=== PATIENT | male | born 1945 | race Caucasian/White ===

== ENCOUNTER 2025-06-19 12:17 | Emergency (ER) | payer OTHER, SELFPAY ==
[2025-06-19 12:24] VITALS: BP 129/60
[2025-06-19 12:54] LABS: Hematocrit 39.8 % (39.0-52.0); Hemoglobin 13.5 g/dL (13.0-18.0); Mean Corp Hgb Conc. 33.9 g/dL (33.0-37.0); Mean Corpuscular Volume 93.9 fL (80.0-94.0); Nucleated Red Blood Cells % 0 % (-); Platelet Count 190 10^3/uL (130-400); Red Cell Dist. Width 13.3 % (11.5-14.5)
[2025-06-19 13:09] LABS: ALT (SGPT) 26 U/L (0-50); AST (SGOT) 29 U/L (17-59); Albumin 4.5 g/dl (3.5-5.0); Alkaline Phosphatase 74 U/L (38-126); Blood Urea Nitrogen 18 mg/dl (9-20); Calcium 9.2 mg/dl (8.4-10.2); Carbon Dioxide 27 mmol/L (22-30); Chloride 104 mmol/L (98-107); Glucose 96 mg/dl (70-99); Potassium 4.1 mmol/L (3.5-5.1); Sodium 136 mmol/L (135-145); Total Protein 7.3 g/dl (6.3-8.2); eGFR > 60.00
[2025-06-19 15:57] VITALS: BP 135/60
[2025-06-19 16:00] VITALS: BP 116/61
[2025-06-19 16:07] VITALS: BMI 23.8
[2025-06-19 17:00] VITALS: BP 111/60
--- NOTE | 2025-06-19 17:11 | ED.GENMED ---
History of Present Illness
<PAM Santos - Last Filed: 06/19/25 20:22>
General
Chief Complaint: Breathing Problem
Exam Limitations: none
Time Seen by Provider: 06/19/25 16:00
Nursing documentation reviewed up to this point in time: agreed with
History of Present Illness
History of Present Illness:
Patient is 80-year-old male with history of COPD hyperlipidemia presents to the ER for evaluation. Patient started with cough and shortness of breath last night. He went to urgent care today had an x-ray and was sent to the ER. He denies any
associated fevers. He wears oxygen as needed. believes his normal pulse ox is between 92-95% on room air. Patient does have oxygen however prescribed by gear repair supervisor to use as needed . He is followed by pulmonology outside of this
institution.
Patient has had flareups like this in the past and reports wheezes quite often.
Patient last smoked a month ago. He reports he smokes maybe 1 cigarette/month.
No prior history of PE. Patient denies any chest pain denies any lower extremity swelling.
Phy Exam
<PAM Santos - Last Filed: 06/19/25 20:22>
General Physical Exam
General Presentation: no apparent distress
General age: appears stated age
General Skin: warm and dry
General Habitus: normal
General Mental: alert
General Hydration: appears well hydrated
Cardiovascular Exam
Cardiovascular Exam: regular rate/rhythm
Pulmonary Exam
Pulmonary Exam: no respiratory distress and generalized wheezing
Neurological Exam
Neurological Exam: alert and oriented x3
Musculoskeletal Exam
Musculoskeletal Exam: full ROM
Skin Exam
Skin Exam: normal color and warm/dry
Psychiatric Exam
Psychiatric Exam: normal mood/affect
Scores
<PAM Santos - Last Filed: 06/19/25 20:22>
Heart Failure Risk
Heart Failure Risk Score: Not Applicable
Course
<PAM Santos - Last Filed: 06/19/25 20:22>
Orders/Labs/Results
Orders:
Orders
06/19/25 12:42
Complete Blood Count/With Diff Urgent
Comprehensive Metabolic Panel Urgent
06/19/25 17:20
Albuterol Sulfate [Ventolin Nebules] 7.5 mg INH R NOW STA
Ipratropium Nebs [Atrovent Nebules] 1 mg INH R NOW STA
06/19/25 17:21
Dexamethasone Sod Phosphate [Decadron] 10 mg IV NOW STA
06/19/25 17:41
COVID-19 Antigen Urgent
Source: Nasal Swab
Influenza A+B Rapid Molecular Urgent
NURYS Source: Nasal Swab
Specimen Description:
Abnormal Lab Results
06/19/25
12:42
RBC 4.24 L 10^6/uL
(4.70-6.10)
MCH 31.8 H pg
(27.0-31.0)
Absolute Neuts (auto) 7.9 H 10^3/uL
(1.4-6.5)
Absolute Monos (auto) 0.9 H 10^3/uL
(0.1-0.6)
Neutrophils % 78.2 H %
(42.2-75.2)
Lymphocytes % 11.5 L %
(20.5-51.1)
06/19/25 12:42
06/19/25 12:42
Vital Signs
Initial and Last Documented VS:
Initial Vital Signs
Temp Pulse Resp BP Pulse Ox
98.8 F 98 28 129/60 93
06/19/25 12:24 06/19/25 12:24 06/19/25 12:24 06/19/25 12:24 06/19/25 12:24
Last Documented Vital Signs
Temp Pulse Resp BP Pulse Ox
98.8 F 108 20 116/61 96
06/19/25 12:24 06/19/25 16:00 06/19/25 16:00 06/19/25 16:00 06/19/25 17:15
Electronics Engineering Professor consulted with Physician
Electronics Engineering Professor consulted with physician?: Yes
Name of Physician Consulted: rickie
<Betzaida Fontana MD - Last Filed: 06/19/25 20:22>
Orders/Labs/Results
Orders:
Orders
06/19/25 12:42
Complete Blood Count/With Diff Urgent
Comprehensive Metabolic Panel Urgent
06/19/25 17:20
Albuterol Sulfate [Ventolin Nebules] 7.5 mg INH R NOW STA
Ipratropium Nebs [Atrovent Nebules] 1 mg INH R NOW STA
06/19/25 17:21
Dexamethasone Sod Phosphate [Decadron] 10 mg IV NOW STA
06/19/25 17:41
COVID-19 Antigen Urgent
Source: Nasal Swab
Influenza A+B Rapid Molecular Urgent
NURYS Source: Nasal Swab
Specimen Description:
Abnormal Lab Results
06/19/25
12:42
RBC 4.24 L 10^6/uL
(4.70-6.10)
MCH 31.8 H pg
(27.0-31.0)
Absolute Neuts (auto) 7.9 H 10^3/uL
(1.4-6.5)
Absolute Monos (auto) 0.9 H 10^3/uL
(0.1-0.6)
Neutrophils % 78.2 H %
(42.2-75.2)
Lymphocytes % 11.5 L %
(20.5-51.1)
06/19/25 12:42
06/19/25 12:42
Vital Signs
Initial and Last Documented VS:
Initial Vital Signs
Temp Pulse Resp BP Pulse Ox
98.8 F 98 28 129/60 93
06/19/25 12:24 06/19/25 12:24 06/19/25 12:24 06/19/25 12:24 06/19/25 12:24
Last Documented Vital Signs
Temp Pulse Resp BP Pulse Ox
98.8 F 108 20 116/61 96
06/19/25 12:24 06/19/25 16:00 06/19/25 16:00 06/19/25 16:00 06/19/25 17:15
<PAM Santos - Last Filed: 06/19/25 20:22>
MDM/Problems Addressed
Differential Diagnosis Includes:
Not limited to pneumonia, COVID, influenza, COPD exacerbation
MDM/Problems Addressed:
Patient is an 80-year-old male with history of COPD has oxygen as needed followed by pulmonology outside of this institution. Patient presents with cough and shortness of breath since yesterday. He denies any fevers he presents awake alert no
acute distress. He does have wheezing however throughout. No prior history of PE DVT no lower extremity swelling. Mildly tachycardic likely from nebs symptoms not consistent with PE likely COPD exacerbation.
Patient was given an hour-long neb and steroids feeling much better.
He ambulated here in the ED, sats did go as low as 88% however this was on room air. Pt wants to go home reports he is feeling much better and has oxygen at home as well as an albuterol nebulizer machine with albuterol nebs.
His CT outpatient urgent care x-ray was scanned into the system and reviewed by radiology. No acute findings. There is a nodular density possible calcified granuloma in the right lower lobe will recommend a nonemergent CAT scan.
Chronic conditions affecting care:
COPD smoker
<PAM Santos - Last Filed: 06/19/25 20:22>
*Radiology
Radiology exam reviewed: preliminary read by ED provider (Urgent care x-ray read by radiologist negative for acute findings there is a nodular opacity in the right lower lobe possible calcified granuloma with needed nonemergent CT) and radiology
read reviewed
*Pulse Oximetry
SaO2: 96
Nasal Cannula flow liters per minute: 3
Oxygen Mode of Delivery: Room air
Patient hypoxic: no
*Critical Care Note
Total Time (30-74mins, 75-104mins- exclusive of procedures): Not Applicable
ED Attending Note
<PAM Santos - Last Filed: 06/19/25 20:22>
-
Portions of this chart may have been created with voice recognition software.� Occasional wrong word or��sound alike� substitutions may have occurred due to the inherent limitations of voice recognition software.
<Betzaida Fontana MD - Last Filed: 06/19/25 20:22>
ED Attending Note
Patient seen and examined by attending physician: Yes
I performed the substantive portion of visit, reviewed & personally made and approve the management plan that is documented in note by myself or AUNDREA.: Yes
ED Attending Note:
80-year-old male with a history of COPD, has oxygen at home, presents with complaints of productive cough and dyspnea since last night. Had a chest x-ray at urgent care and was referred to emergency department. Patient denies chest pain, leg
swelling, abdominal pain, complaints. Patient treated here with nebulizer, feels improved, very eager to go home, at bedside and also eager for hemoglobin level. He does still at this time have mild expiratory wheezes, but speaks in full
sentences without stridor or any respiratory distress. Pulse ox 94. Does have mild tachycardia which is likely related to his beta agonist use for his COPD. Low clinical suspicion for PE given convincing clinical picture for COPD exacerbation, no
pleuritic chest pain, etc. Discussed with patient importance of follow-up return here.
Discharge Plan
Departure
Patient Disposition: Home (Routine Discharge)
Date of Disposition: 06/19/25
Time of Disposition: 20:17
Patient with high blood pressure during this ER visit?: Yes
Condition: Fair
Covid-19: Not Applicable
Discharge Problem:
COPD exacerbation
Instructions: Exacerbation of COPD (DC)
Prescriptions:
New
prednisone 20 mg tablet
40 mg PO DAILY Qty: 10 0RF
No Action
atorvastatin [Lipitor] 10 mg Tablet
10 mg PO DAILY
Theragen Tablet
1 tab PO DAILY
docusate sodium [Colace] 100 mg Capsule
100 mg PO HS
budesonide 0.5 mg/2 mL Suspension For Nebulization
0.5 mg INHALATION R BID
sertraline 50 mg Tablet
50 mg PO DAILY
cholecalciferol (vitamin D3) [Vitamin D3] 25 mcg (1,000 unit) Capsule
25 mcg PO DAILY MDD sup
formoterol fumarate 20 mcg/2 mL Solution For Nebulization
20 mcg INHALATION R BID
Spiriva Respimat 2.5 mcg/actuation Mist
2 inh INHALATION R DAILY
Referrals:
Ciro Lee DO [Family Provider, Family Practice]
Activity Restrictions/Additional Instructions:
As discussed please continue to use your albuterol nebulizer as previously recommended. Wear your oxygen also as previously recommended for additional support. A prescription for prednisone was sent to your pharmacy to start tomorrow daily for the
next 5 days. Take as directed. Follow-up with your family doctor next several days return if any worsening of symptoms.
Please stop smoking
In addition there is a small calcification on your chest x-ray in your right lower lobe please follow-up with your family doctor for reevaluation of this it is recommended that you have a nonemergent CAT scan of your chest.
Interventions
Interventions:
*General Assessment Last Done: 06/19/25 16:08
*Neglect/Abuse Screening Last Done: 06/19/25 16:08
*ED COVID-19 Vaccine History Last Done: 06/19/25 16:08
*ED Influenza Vaccine History Last Done: 06/19/25 16:08
[facility] Fall Risk Assessment Tool Last Done: 06/19/25 16:08
*Risk Screen - Suicide (C-SSRS) Last Done: 06/19/25 16:08
ED- Cardiac Assessment Last Done: 06/19/25 16:08
ED- Pulmonary Assessment Last Done: 06/19/25 16:08
Discharge Date and Time
Print Language: LATVIAN
[2025-06-19] MEDS: ATROVENT NEBULES 1 MG INH (17:34)
[2025-06-19] MEDS: VENTOLIN NEBULES 7.5 MG INH (17:35)
[2025-06-19] MEDS: DECADRON 10 MG IV (17:57)
[2025-06-19 18:05] LABS: COVID-19 Antigen Negative (Negative)
[2025-06-19 19:08] VITALS: BP 109/49
[2025-06-19 20:00] VITALS: BP 108/43
== END 2025-06-19 20:39 | disposition home or self-care (01) ==
LOC: EMR 12:17
PROVIDERS: Emergency Medicine; Nurse Practitioner; EMERGENCY PHYSICIAN Emergency Medicine; FAMILY PHYSICIAN Family Medicine
DX: J44.1 Chronic obstructive pulmonary disease with (acute) exacerbation (principal); E78.00 Pure hypercholesterolemia, unspecified; F17.200 Nicotine dependence, unspecified, uncomplicated; Z99.81 Dependence on supplemental oxygen
CPT/HCPCS: 99284; 94640; 96374; 80053; 85025; 87502; 87811